=== PATIENT | male | born 1985 | race Caucasian/White ===

== ENCOUNTER 2018-05-07 09:33 | Emergency (ER) | payer MEDICAID ==
--- NOTE | 2018-05-07 09:51 | C.PDOC ---
History Of Present Illness 32 y/o male brought in by [facility], after acting bizarre in public. 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 + Active hallucinations. <ClausMary - Last Filed: 05/07/18 12:51> History Per: Patient History/Exam Limitations: intoxication Onset/Duration Of Symptoms: Unknown Current Symptoms Are (Timing): Still Present Suicide/Self Injury Attempted (Context): None Additional History Per: Law Enforcement <Mary Devlin - Last Filed: 05/07/18 12:51> <Ankur Avalos M - Last Filed: 05/07/18 17:40> Time Seen by Provider: 05/07/18 09:48 Chief Complaint (Nursing): Psychiatric Evaluation Past Medical History Reviewed: Historical Data, Nursing Documentation, Vital Signs Vital Signs: Last Vital Signs Temp 98.8 F 05/07/18 09:39 Pulse 108 H 05/07/18 09:39 Resp 19 05/07/18 09:39 BP 152/91 H 05/07/18 09:39 Pulse Ox 100 05/07/18 09:39 Family History: States: No Known Family Hx - Social History Hx Alcohol Use: No (UNKNOWN) Hx Substance Use: No (UNKNOWN) - Immunization History Hx Tetanus Toxoid Vaccination: No Hx Influenza Vaccination: No Hx Pneumococcal Vaccination: No <ClausMary - Last Filed: 05/07/18 12:51> Vital Signs: Last Vital Signs Temp 98.2 F 05/07/18 15:20 Pulse 89 05/07/18 15:20 Resp 16 05/07/18 15:20 BP 122/78 05/07/18 15:20 Pulse Ox 97 05/07/18 15:20 <Ankur Avalos M - Last Filed: 05/07/18 17:40> Review Of Systems Review Of Systems: ROS cannot be obtained secondary to pt's inabilty to answer questions. <Mary Devlin - Last Filed: 05/07/18 12:51> Physical Exam - Physical Exam Appears: Non-toxic, No Acute Distress Skin: Warm, Dry, No Ecchymosis, Other (Duct tape in place behind neck and arm pits) Head: Atraumatic, Normacephalic Eye(s): bilateral: Normal Inspection, PERRL, EOMI Oral Mucosa: Moist Neck: Normal ROM Chest: Symmetrical Cardiovascular: Rhythm Regular Respiratory: Normal Breath Sounds, No Accessory Muscle Use, Other (NARD) Gastrointestinal/Abdominal: Soft, No Tenderness, No Distention Extremity: Bilateral: Atraumatic, Normal Color And Temperature Pulses: Left Dorsalis Pedis: Normal, Right Dorsalis Pedis: Normal Neurological/Psych: Other (Psychotic, active hallucinations, probably drug intox) <Mary Devlin - Last Filed: 05/07/18 12:51> ED Course And Treatment - Laboratory Results Result Diagrams: 05/07/18 10:51 05/07/18 10:51 ECG: Interpreted By Me, Viewed By Me ECG Rhythm: Sinus Tachycardia Interpretation Of ECG: QTc is 465, remaining intervals are normal Rate From EC (bpm) O2 Sat by Pulse Oximetry: 100 (RA) Pulse Ox Interpretation: Normal <Mary Devlin Last Filed: 05/07/18 12:51> - Laboratory Results Result Diagrams: 05/07/18 10:51 05/07/18 10:51 <Ankur Avalos - Last Filed: 05/07/18 17:40> Progress - Re-Evaluation Re-evaluation Note: 05/07/18 11:40 PATIENT'S ID FOUND NAME: SHARI VALLADARES : 1985 05/07/18 12:48 D/[place] CRISIS [place] [facility] [place] [facility]USER. LAST SEEN 02/2018 - Data Reviewed Data Reviewed: Lab, Diagnostic imaging, EKG - Critical Care Citical Care: Excluding Proc Time Critical Care Time: 90 minutes <Mary Devlin Last Filed: 05/07/18 12:51> Medical Decision Making Medical Decision Making: Initial Plan: --EKG --Blood work --Urinalysis --Chest x-ray --Geodon 20 mg IM --Placed on 1:1 obs, awaiting crisis eval <Mary Devlin - Last Filed: 05/07/18 12:51> Disposition - Disposition Disposition Time: 13:00 <Mary Devlin - Last Filed: 05/07/18 12:51> Discussed With : Oli Khan Doctor Will See Patient In The: ED Counseled Patient/Family Regarding: Studies Performed, Diagnosis, Need For Followup - Disposition Disposition Time: 17:39 <Ankur Avalos - Last Filed: 05/07/18 17:40> - Disposition Referrals: [facility] [Outside] Disposition: HOME/ ROUTINE Condition: STABLE Additional Instructions: follow up with medical clinic within 2 days call to make an appointment take medications as prescribed return to ER if symptoms worsens or progress Instructions: Drug Abuse and Drug Addiction (DC) Forms: [facility] (Burmese), General Discharge Instructions - Clinical Impression Clinical Impression: Drug psychosis - Scribe Statement The provider has reviewed the documentation as recorded by the Deangeloibe Florence Chang Provider Attestation: All medical record entries made by the Deangeloibe were at my direction and personally dictated by me. I have reviewed the chart and agree that the record accurately reflects my personal performance of the history, physical exam, medical decision making, and the department course for this patient. I have also personally directed, reviewed, and agree with the discharge instructions and disposition. <Mary Devlin - Last Filed: 05/07/18 12:51> Physician Patient Turnover Patient Signed Over To: Ankur Avalos Handoff Comments: ANGELICA PARKER <Mary Devlin - Last Filed: 05/07/18 12:51> Addendum Addendum: 05/07/18 17:38 received in s/o from Dr. Devlin. repeat pulse 90 bpm, patient seen and cleared by DR. Khan for discharge home. Advised to follow up with pmd within 2 days <Ankur Avalos - Last Filed: 05/07/18 17:40>
[2018-05-07 11:10] LABS: BASO % 0.5 % (0.0-2.0); EOS % 0.9 % (0.0-4.0); HEMOGLOBIN 14.3 g/dL (12.0-18.0); LYMPH # 1.6 K/uL (1.0-4.3); LYMPH % 44.2 % (20.0-40.0); MEAN CELL VOLUME 89.9 fL (80.0-94.0); MEAN CORPUSCULAR HEMOGLOBIN 30.4 pg (27.0-31.0); MEAN CORPUSCULAR HGB CONC 33.8 g/dL (33.0-37.0); MEAN PLATELET VOLUME 7.4 fL (7.2-11.7); MONO # 0.4 K/uL (0.0-0.8); MONO % 12.2 % (0.0-10.0); NEUT # 1.5 K/uL (1.8-7.0); NEUT % 42.2 % (50.0-75.0); NRBC % 0.1 % (0.0-2.0); RBC 4.69 Mil/uL (4.40-5.90); RED CELL DISTRIBUTION WIDTH 12.8 % (11.5-14.5); WHITE BLOOD COUNT 3.6 K/uL (4.8-10.8)
[2018-05-07 11:13] LABS: ALB/GLOB RATIO 1.4 (1.0-2.1); ALBUMIN 4.8 g/dL (3.5-5.0); ALT/SGPT 27 U/L (21-72); AST/SGOT 60 U/L (17-59); BLOOD UREA NITROGEN 10 mg/dL (9-20); CALCIUM 9.7 mg/dl (8.6-10.4); GFR NON-AFRICAN AMERICAN > 60
[2018-05-07 11:35] VITALS: RESP 16
[2018-05-07 12:30] LABS: SQUAMOUS EPITHIAL 1 /hpf (0-5); URINE BILIRUBIN NEGATIVE (NEGATIVE); URINE BLOOD NEGATIVE (NEGATIVE); URINE CLARITY Clear (Clear); URINE COLOR Amber (YELLOW); URINE GLUCOSE (UA) NORMAL (Normal); URINE PROTEIN 1+ mg/dL (NEGATIVE)
[2018-05-07 12:31] LABS: URINE LEUKOCYTE ESTERASE 1+ Leu/uL (Negative)
[2018-05-07 12:41] LABS: BARBITURATES, UR NEGATIVE (NEGATIVE); BENZODIAZEPINES, UR NEGATIVE (NEGATIVE); OPIATES, UR NEGATIVE (NEGATIVE); PHENCYCLIDINE, UR NEGATIVE (NEGATIVE)
--- NOTE | 2018-05-07 12:49 | CARD ---
APPROVED REPORT Date of service: 05/07/2018 EKG Measurement Heart [id number] MI [id number] <Conclusion> Sinus tachycardia Possible Left atrial enlargement Pulmonary disease pattern Left anterior fascicular block Abnormal ECG
[2018-05-07 15:45] VITALS: BP 122/78; PULSE 89; TEMP 98.2; O2SAT 97
--- NOTE | 2018-05-07 16:19 | RAD ---
Chest x-ray single frontal view HISTORY: Psychosis. COMPARISON: None available. FINDINGS: No focal infiltrate or effusion. Bilateral hilar prominence. Heart size within normal limits. Bibasilar breast shadows. IMPRESSION: No focal infiltrate or effusion. Correlation with lateral view may be helpful if clinically indicated.
== END 2018-05-07 18:09 | disposition home or self-care (01) ==
LOC: MERGE 09:33 → C.ER 09:33 → EDBD 09:33 → C.ER 18:09
DX: F29 Unspecified psychosis not due to a substance or known physiological condition (principal)
CPT/HCPCS: 71045; 80053; 81001; 83735; 84100; 85025; 93005; 96372; 99285; G0480; J3486